=== PATIENT | female | born 1950 | race Caucasian/White ===

== ENCOUNTER 2019-04-09 19:37 | Emergency (ER) | payer MEDICARE, BC ==
[2019-04-09] MEDS ORDERED: HYDROmorphone 1 MG/ML Syringe IM ONE (20:26)
--- NOTE | 2019-04-09 21:23 | CRLCR ---
INDICATION: Trauma TECHNIQUE: Two views left humerus COMPARISON: None FINDINGS: Bones: Nondisplaced left greater tuberosity fracture. Impacted humeral neck fracture. Joint spaces: Degenerative changes AC joint. Soft tissues: Unremarkable. IMPRESSION: Impacted humeral neck fracture. Nondisplaced greater tuberosity fracture. Dictated by Reynold Durand MD @ 04/09/2019 9:21:43 PM Dictated by: Reynold Durand MD @ 04/09/2019 21:21:53 (Electronically Signed)
[2019-04-09 21:25] VITALS: BP 140/70; PULSE 80
--- NOTE | 2019-04-09 21:37 | EDM.PDOC ---
ED HPI GENERAL MEDICAL PROBLEM - General Chief Complaint: Upper Extremity Injury/Pain Stated Complaint: FELL AT HOME HURT ARM Time Seen by Provider: 04/09/19 20:12 Source of Information: Reports: Patient History Limitations: Reports: No Limitations - History of Present Illness INITIAL COMMENTS - FREE TEXT/NARRATIVE: This lady was at home when she fell and landed on her left arm. She complains of left arm pain from the shoulder to the elbow. There were no other injuries. Left Upper Arm Pain Score (Numeric/FACES): 6 - Related Data Allergies Allergy/AdvReac Type Severity Reaction Status Date / Time phenobarbital Allergy Rash Verified 04/09/19 20:06 Home Meds: Home Meds Aspirin [Halfprin] 81 mg PO DAILY 06/08/14 [History] Fenofibrate Nanocrystallized [Triglide] 160 mg PO BEDTIME 06/08/14 [History] Fish Oil/[place]-3 Fatty Acids [Fish Oil 1,000 MG] 1,000 mg PO BID 06/08/14 [ History] Multivitamin [Multi-Vitamin Daily] 1 tab PO DAILY 06/08/14 [History] Niacin (Inositol Niacinate) [Niacin Flush Free 500 mg Cap] 2,000 mg PO DAILY [History] Alendronate [Fosamax] 70 mg PO Q7D@0600 02/20/15 [History] Calcium Carb/Vit D3/Minerals [Calcium 600+D Plus Minerals] 1 each PO BID [History] Cetirizine [ZyrTEC] 10 mg PO DAILY 02/20/15 [History] Cholecalciferol (Vitamin D3) [Vitamin D3] 5,000 unit PO DAILY 02/20/15 [History] Diclofenac Sodium [Voltaren 1%] 1 applic TP QID 02/20/15 [History] Fluticasone Propionate [Flonase Allergy Relief] 9.9 ml NS DAILY 02/20/15 [ History] Sennosides/Docusate Sodium [Senokot-S Tablet] 2 tab PO BID 09/13/15 [History] Hydrochlorothiazide 12.5 mg PO DAILY 02/20/16 [History] Nystatin [Nystop] 60 gm TP ASDIRECTED 02/20/16 [History] Simvastatin 40 mg PO DAILY 02/20/16 [History] DULoxetine HCl [Duloxetine HCl] 20 mg PO DAILY 04/09/19 [History] Furosemide 20 mg PO DAILY 04/09/19 [History] Nystatin [Nystop] 1 dose PO DAILY 04/09/19 [History] Warfarin [Coumadin] 5 mg PO ASDIRECTED 04/09/19 [History] glipiZIDE [Glipizide ER] 2.5 mg PO DAILY 04/09/19 [History] Past Medical History HEENT History: Reports: Impaired Vision Cardiovascular History: Reports: High Cholesterol Respiratory History: Reports: PE Gastrointestinal History: Reports: GERD, Other (See Below) Other Gastrointestinal History: elevated liver enzymes Genitourinary History: Reports: Acute Renal Failure, UTI, 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 Was on metformen few years ago. - Infectious Disease History Infectious Disease History: Reports: Chicken Pox, Measles, Mumps - Past Surgical History GI Surgical History: Reports: Colonoscopy Female Surgical History: Reports: Section Musculoskeletal Surgical History: Reports: Shoulder Surgery Social & Family History - Tobacco Use Smoking Status *Q: Never Smoker Review of Systems - Review of Systems Review Of Systems: ROS reveals no pertinent complaints other than HPI. ED EXAM, GENERAL - Physical Exam Exam: See Below Exam Limited By: No Limitations General Appearance: Alert, WD/WN, Mild Distress Eye Exam: Bilateral Eye: Normal Inspection Extremities: Other (Tenderness to the upper aspect of the left humerus consistent with a humeral head fracture. Limited range of motion also. There some tenderness to the proximal 8 cm of the left ulna but the left elbow is nontender. Neurovascular tendon all intact) Skin Exam: Warm, Dry, Intact Course - Vital Signs Last Recorded V/S: Last Vital Signs Temp 36.2 C 04/09/19 20:05 Pulse 80 04/09/19 21:23 Resp 16 04/09/19 21:23 BP 140/70 04/09/19 21:23 Pulse Ox 96 04/09/19 21:23 - Orders/Labs/Meds Meds: Medications Discontinued Medications Generic Name Dose Route Start Last Admin Trade Name Freq PRN Reason Stop Dose Admin Hydromorphone HCl 0.75 mg 04/09/19 20:26 08/16/19 20:37 Dilaudid IM 04/09/19 20:27 0.75 mg ONETIME ONE Administration - Radiology Interpretation Free Text/Narrative:: Left shoulder shows left greater tuberosity fracture and impacted humeral head - Re-Assessments/Exams Free Text/Narrative Re-Assessment/Exam: 04/09/19 21:33 Patient received Dilaudid 0.75 mg IM which seemed to give fairly good pain control. She was placed in a sling Departure - Departure Time of Disposition: 21:34 Disposition: Home, Self-Care 01 Condition: Fair Clinical Impression: Fracture of greater tuberosity of humerus - Discharge Information Referrals: Olinda Davis PA [Primary Care Provider] - Additional Instructions: Keep your arm in sling and allow it to hang during the day. This is the standard treatment for this kind of fracture. Apply ice several times per day. For pain take Narco 5/325, #20 tablets, one or 2 every 4-6 hours as needed for pain. This medication can cause sedation which could lead to falls and can cause addiction if abused. Orthopedic clinic should be giving you a call on Friday. You will need to be seen in clinic sometime early next week.
== END 2019-04-09 22:06 | disposition home or self-care (01) ==
LOC: JP.ED 19:37
DX: S42.252A Displaced fracture of greater tuberosity of left humerus, initial encounter for closed fracture (principal); E78.00 Pure hypercholesterolemia, unspecified; E11.9 Type 2 diabetes mellitus without complications; Z88.8 Allergy status to other drugs, medicaments and biological substances; Z79.82 Long term (current) use of aspirin; Z79.899 Other long term (current) drug therapy; Z79.01 Long term (current) use of anticoagulants; Z79.84 Long term (current) use of oral hypoglycemic drugs; W18.39XA Other fall on same level, initial encounter; Y92.009 Unspecified place in unspecified non-institutional (private) residence as the place of occurrence of the external cause
CPT/HCPCS: 73060; 96372; 99283; J1170

== ENCOUNTER 2020-05-16 06:47 | Day surgery (SDC) | payer MEDICARE, BC ==
[2020-05-16] MEDS ORDERED: Sodium Chloride 0.9% 1,000 ML IV SCH (07:00)
[2020-05-16] MEDS ORDERED: Propofol 200 MG/20 ML SDV ONE (07:26)
[2020-05-16] MEDS ORDERED: fentaNYL 100 MCG/2 ML SDV ONE (07:26)
[2020-05-16 08:50] VITALS: BP 120/59; PULSE 70
--- NOTE | 2020-05-16 10:48 | OR ---
DATE OF PROCEDURE: 05/16/2020 SURGEON: Anatoly Mota MD PROCEDURE: Colonoscopy. FINDINGS: 1. Transverse colon polyp, approximately 5 mm, completely removed using cold biopsy forceps. 2. Diverticulosis, mild (rare diverticula in sigmoid colon only, approximately less than 5). COMPLICATION: None. MANAGER APPLE: None. ANESTHESIA: MAC. PREOPERATIVE DIAGNOSIS: Family history of colorectal cancer risk. POSTOPERATIVE DIAGNOSIS: Family history of colorectal cancer risk. RISKS: Risks, benefits, alternatives, and limitations including, but not limited to infection, bleeding, and perforation were explained to the patient, who wished to proceed. PROCEDURE IN DETAIL: The patient was placed in left lateral decubitus position. Digital rectal exam was performed without abnormality. Scope was introduced and advanced atraumatically to the ileocecal valve. Scope was brought back through the ascending, transverse, descending colon, and retroflexed. The aforementioned polyp was identified and completely removed. Diverticulosis was described as very mild without evidence of diverticulitis or bleeding. No evidence of colitis. No old or new blood. No abnormalities on retroflexion. Greater than 8 minutes was spent removing the scope. The patient tolerated the procedure well. Anatoly Mota MD /[id number]
== END 2020-05-16 09:14 | disposition home or self-care (01) ==
LOC: JP.SDS 06:47
PROVIDERS: ATTEND Surgery
DX: Z12.11 Encounter for screening for malignant neoplasm of colon (principal); Z12.12 Encounter for screening for malignant neoplasm of rectum; D12.3 Benign neoplasm of transverse colon; K57.30 Diverticulosis of large intestine without perforation or abscess without bleeding; E11.9 Type 2 diabetes mellitus without complications; E66.9 Obesity, unspecified; Z87.891 Personal history of nicotine dependence; Z80.0 Family history of malignant neoplasm of digestive organs; Z68.38 Body mass index [BMI] 38.0-38.9, adult
CPT/HCPCS: 45380; J2704; J3010; J7030; 88305

== ENCOUNTER 2023-03-09 07:32 | Emergency (ER) | payer MEDICARE, BC ==
[2023-03-09 07:54] VITALS: BP 128/67; PULSE 74
== END 2023-03-09 09:19 | disposition home or self-care (01) ==
LOC: JP.ED 07:32
DX: J02.0 Streptococcal pharyngitis (principal); E66.9 Obesity, unspecified; M19.90 Unspecified osteoarthritis, unspecified site; E78.00 Pure hypercholesterolemia, unspecified; E11.9 Type 2 diabetes mellitus without complications; Z68.35 Body mass index [BMI] 35.0-35.9, adult; Z87.891 Personal history of nicotine dependence; Z20.822 Contact with and (suspected) exposure to COVID-19; Z86.16 Personal history of COVID-19; Z79.82 Long term (current) use of aspirin; Z79.01 Long term (current) use of anticoagulants; Z79.84 Long term (current) use of oral hypoglycemic drugs; Z79.899 Other long term (current) drug therapy; Z88.5 Allergy status to narcotic agent; Z88.8 Allergy status to other drugs, medicaments and biological substances
CPT/HCPCS: 87651; 99284; U0002

== ENCOUNTER 2024-01-05 10:52 | Emergency (ER) | payer MEDICARE, BC ==
[2024-01-05 15:35] VITALS: BP 112/67; PULSE 71
== END 2024-01-05 16:17 | disposition home or self-care (01) ==
LOC: JP.ED 10:52
DX: M25.561 Pain in right knee (principal); E11.9 Type 2 diabetes mellitus without complications; Z88.5 Allergy status to narcotic agent; Z91.040 Latex allergy status; Z88.8 Allergy status to other drugs, medicaments and biological substances; Z79.82 Long term (current) use of aspirin; Z79.899 Other long term (current) drug therapy; Z86.19 Personal history of other infectious and parasitic diseases; Z79.01 Long term (current) use of anticoagulants
CPT/HCPCS: 73562-26-RT; 73562-RT; 99283

== ENCOUNTER 2025-07-10 09:10 | Emergency (ER) | payer MEDICARE, BC ==
[2025-07-10 10:27] LABS: BASOPHILS ABSOLUTE AUTO 0.04 K/uL (0.00-0.10); BASOPHILS PERCENT AUTO 0.5 % (0.1-1.3); EOSINOPHILS PERCENT AUTO 0.3 % (0.0-5.4); IMMATURE GRAN ABSOLUTE AUTO 0.03 K/uL (0.00-0.23); IMMATURE GRAN PERCENT AUTO 0.4 % (0.0-0.7); LYMPHOCYTES ABSOLUTE AUTO 0.58 K/uL (0.8-3.3); LYMPHOCYTES PERCENT AUTO 8.0 % (11.4-47.7); MONOCYTES ABSOLUTE AUTO 0.72 K/uL (0.20-0.90); MONOCYTES PERCENT AUTO 9.9 % (3.3-12.6); NEUTROPHILS ABSOLUTE AUTO 5.90 K/uL (1.0-7.6); NEUTROPHILS PERCENT AUTO 80.9 % (40.0-78.1); PLATELET COUNT,PLT 180 K/uL (130-375); RED BLOOD CELL COUNT 3.73 M/uL (3.77-5.24); WHITE BLOOD CELL COUNT,WBC 7.3 K/uL (3.2-11.0)
[2025-07-10 10:29] LABS: EOSINOPHILS ABSOLUTE AUTO 0.02 K/uL (0.00-0.40)
[2025-07-10 10:43] LABS: INR 3.1
[2025-07-10 10:48] LABS: A/G RATIO 1.0 (1.2-2.2); ALANINE AMINOTRANSFERASE,ALT 21 U/L (12-78); ASPARTATE AMNIOTRANSFERASE,AST 20 U/L (15-37); BILIRUBIN TOTAL 1.7 mg/dL (0.2-1.0); BLOOD UREA NITROGEN,BUN 17 mg/dL (7-18); CARBON DIOXIDE,CO2 24 mmol/L (21-32); CHLORIDE,CL 104 mmol/L (100-108); CREATININE 0.9 mg/dL (0.6-1.0); EST CRCL DRUG DOSING (CG) 39.50 mL/min; ESTIMATED GFR 66 mL/min (>60); GLUCOSE RANDOM 140 mg/dL (74-106); POTASSIUM,K 4.1 mmol/L (3.6-5.2); PROTEIN TOTAL,TP 7.1 g/dL (6.4-8.2); SODIUM,NA 139 mmol/L (140-148)
[2025-07-10] MEDS: Acetaminophen/HYDROcodone 325-5 MG Tab PO ONE (12:03)
[2025-07-10] MEDS: Ketorolac 15 MG/ML SDV IM ONE (12:08)
[2025-07-10] MEDS: Triamcinolone Acetonide 40 MG/ML 1 ML SDV IM ONE (12:10)
[2025-07-10 12:25] VITALS: BP 139/73; PULSE 75
== END 2025-07-10 12:36 | disposition home or self-care (01) ==
LOC: JP.ED 09:10
DX: M19.072 Primary osteoarthritis, left ankle and foot (principal); R19.7 Diarrhea, unspecified; E11.9 Type 2 diabetes mellitus without complications; Z87.891 Personal history of nicotine dependence; Z88.5 Allergy status to narcotic agent; Z88.8 Allergy status to other drugs, medicaments and biological substances; Z91.040 Latex allergy status; Z79.01 Long term (current) use of anticoagulants; Z79.899 Other long term (current) drug therapy
CPT/HCPCS: 36415; 73610; 80053; 84550; 85025; 85610; 86140; 93971; 96372; 99284; J3301; J1885

== ENCOUNTER 2025-07-25 06:35 | Day surgery (SDC) | payer MEDICARE, BC ==
[2025-07-25] MEDS ORDERED: fentaNYL 50 MCG/ML SDV ONE (07:01)
[2025-07-25] MEDS ORDERED: Propofol 200 MG/20 ML SDV ONE ×2 (07:01→08:00)
[2025-07-25] MEDS: Lactated Ringers 1,000 ML IV SCH (07:14)
[2025-07-25 07:33] LABS: INR 1.2
[2025-07-25 09:50] VITALS: BP 136/49; PULSE 54
== END 2025-07-25 10:10 | disposition home or self-care (01) ==
LOC: JP.SDS 06:35
PROVIDERS: ATTEND Surgery
DX: K22.70 Barrett's esophagus without dysplasia (principal); K44.9 Diaphragmatic hernia without obstruction or gangrene; K31.7 Polyp of stomach and duodenum; E11.9 Type 2 diabetes mellitus without complications; Z80.0 Family history of malignant neoplasm of digestive organs; Z88.5 Allergy status to narcotic agent; Z88.8 Allergy status to other drugs, medicaments and biological substances; Z79.01 Long term (current) use of anticoagulants; Z91.040 Latex allergy status; Z79.899 Other long term (current) drug therapy; Z86.0100 Personal history of colon polyps, unspecified
CPT/HCPCS: 00813; 36415; 43239; 45380; 85610; 87081; J2704; J3010; J7120